=== PATIENT | female | born 1990 | race Two or more races ===

== ENCOUNTER 2019-10-29 13:51 | Outpatient (CLI) | payer OTHER | END 2019-10-29 14:04 | disposition home or self-care (01) | LOC: MAMO-SONO 13:51 | DX: N64.4 Mastodynia (principal); Z12.31 Encounter for screening mammogram for malignant neoplasm of breast ==

== ENCOUNTER 2020-12-22 08:45 | Outpatient (CLI) | payer OTHER | END 2020-12-22 08:50 | disposition home or self-care (01) | LOC: PPH VACUNA 08:45 | DX: Z23 Encounter for immunization (principal) ==

== ENCOUNTER 2021-04-12 14:06 | Outpatient (CLI) | payer OTHER | END 2021-04-12 14:21 | disposition home or self-care (01) | LOC: SONOGRAMA 14:06 → MAMO-SONO 14:30 | PROVIDERS: ATTEND Obstetrics & Gynecology | DX: E04.2 Nontoxic multinodular goiter (principal); N64.4 Mastodynia; R10.2 Pelvic and perineal pain ==

== ENCOUNTER → 2023-09-01 | Emergency (ER) | payer OTHER ==
[~2023-09-01] VITALS: Ht 170.2 cm; Wt 109.8 kg
[~2023-09-01] MED LIST: BUPROPION XL150 MG PO; BUPROPION XL300 MG PO; CYCLOBENZAPRINE10 MG PO; KETO10TA2 PO; SPIRONOLACTONE100 MG PO; SYNTHROID100 MCG PO; SYNTHROID112 MCG PO
== END | disposition home or self-care (01) ==
LOC: ER 17:22
DX: S82.891A Other fracture of right lower leg, initial encounter for closed fracture (principal); S79.811A Other specified injuries of right hip, initial encounter; W18.39XA Other fall on same level, initial encounter; Y93.89 Activity, other specified; Y92.018 Other place in single-family (private) house as the place of occurrence of the external cause; S89.81XA Other specified injuries of right lower leg, initial encounter

== ENCOUNTER 2023-09-11 14:09 | Outpatient (CLI) | payer OTHER | END 2023-09-11 14:19 | disposition home or self-care (01) | LOC: RAD 14:09 | PROVIDERS: ATTEND Orthopaedic Surgery | DX: S82.64XA Nondisplaced fracture of lateral malleolus of right fibula, initial encounter for closed fracture (principal); S80.02XA Contusion of left knee, initial encounter ==

== ENCOUNTER 2023-09-19 09:29 | Outpatient (CLI) | payer OTHER | END 2023-09-19 09:49 | disposition home or self-care (01) | LOC: RAD 09:29 | PROVIDERS: ATTEND Orthopaedic Surgery | DX: S82.64XA Nondisplaced fracture of lateral malleolus of right fibula, initial encounter for closed fracture (principal) ==

== ENCOUNTER 2023-10-17 14:50 | Outpatient (CLI) | payer OTHER | END 2023-10-17 14:56 | disposition home or self-care (01) | LOC: RAD 14:50 | PROVIDERS: ATTEND Orthopaedic Surgery | DX: S82.64XD Nondisplaced fracture of lateral malleolus of right fibula, subsequent encounter for closed fracture with routine healing (principal) ==

== ENCOUNTER 2024-04-13 06:27 | Outpatient (CLI) | payer OTHER ==
[2024-04-13 07:28] LABS: ALBUMIN 3.6 gm/dL (3.4-5.0); BILIRUBIN TOTAL 0.45 mg/dL (0.3-1.2); CALCIUM 8.8 mg/dL (8.5-10.1); CREATININE SERUM 0.76 mg/dL (0.55-1.02); GFR 88.76; GLOBULINA 3.6 G/DL (2.4-3.5); MAGNESIUM 2.1 mg/dL (1.8-2.4); PHOSPHOROUS 3.1 mg/dL (2.5-4.9); POTASSIUM 3.73 mEq/L (3.5-5.1); TOTAL PROTEIN 7.2 gm/dL (6.4-8.2)
[2024-04-14 13:06] LABS: CALCIUM IONIZED 4.9 mg/dL (4.5-5.6)
== END 2024-04-13 06:36 | disposition home or self-care (01) ==
LOC: LAB 06:27
PROVIDERS: ATTEND Orthopaedic Surgery
DX: E55.9 Vitamin D deficiency, unspecified (principal); M85.9 Disorder of bone density and structure, unspecified; E56.1 Deficiency of vitamin K; E21.3 Hyperparathyroidism, unspecified; E88.89 Other specified metabolic disorders; M81.8 Other osteoporosis without current pathological fracture

== ENCOUNTER → 2024-12-21 | Emergency (ER) | payer OTHER ==
[~2024-12-21] VITALS: Ht 170.2 cm; Wt 102.1 kg
[~2024-12-21] MED LIST changes: +METHYLPREDNISOLONE SOD SUCC 125 MG VIAL IM STA; +METHYLPREDNISOLONE SOD SUCC 125 MG VIAL ONE; +WATER FOR INJ.,BACTERIOSTATIC 30 ML VIAL IJ ONE
== END | disposition home or self-care (01) ==
LOC: ER 09:58
DX: L25.9 Unspecified contact dermatitis, unspecified cause (principal); R21 Rash and other nonspecific skin eruption